=== PATIENT | male | born 1990 | race Caucasian/White ===

== ENCOUNTER 2016-12-30 15:58 | Emergency (ER) | payer MEDICAID ==
[~2016-12-30] VITALS: Ht 175.3 cm; Wt 151.5 kg
[2016-12-30 19:07] VITALS: BP 137/95
== END 2016-12-30 19:07 | disposition home or self-care (01) ==
LOC: ED 15:58
DX: L03.116 Cellulitis of left lower limb (principal); L03.115 Cellulitis of right lower limb; E11.9 Type 2 diabetes mellitus without complications
CPT/HCPCS: 82962

== ENCOUNTER 2017-04-23 09:25 | Emergency (ER) | payer OTHER ==
[~2017-04-23] VITALS: Ht 175.3 cm; Wt 156.5 kg
[2017-04-23 09:32] VITALS: Ht 175.3 cm; Wt 156.5 kg
[2017-04-23 11:17] VITALS: BP 151/84
== END 2017-04-23 11:17 | disposition home or self-care (01) ==
LOC: ED 09:25
DX: J98.01 Acute bronchospasm (principal); R07.89 Other chest pain; L40.9 Psoriasis, unspecified; F20.9 Schizophrenia, unspecified; E66.01 Morbid (severe) obesity due to excess calories; R06.02 Shortness of breath
CPT/HCPCS: J2930; J7613; J7644